=== PATIENT | female | born 1960 | race Caucasian/White ===

== ENCOUNTER 2020-11-26 05:49 | Day surgery (SDC) | payer OTHER ==
[2020-11-23 11:15] LABS: COVID AG,FIA SOURCE NASAL SWAB
[~2020-11-26] VITALS: Ht 152.4 cm; Wt 75.0 kg
[2020-11-26] MEDS ORDERED: LIDOCAINE 4% 50 ML SOLUTION TP ONE (05:50)
[2020-11-26] MEDS ORDERED: ALBUTEROL SULFATE 2.5 MG/0.5 ML NEB SOLUTION NEB ONE (05:50)
[2020-11-26] MEDS ORDERED: BENZOCAINE 20% 50 MCG/SPRAY 57 GM TP ONE (05:50)
[2020-11-26] MEDS ORDERED: LIDOCAINE 2% 30 ML JELLY TP ONE (05:50)
[2020-11-26] MEDS ORDERED: SODIUM CHLORIDE 0.9% 1,000 ML ONE (06:10)
[2020-11-26] MEDS ORDERED: ESCI20TA87 PO (06:46)
[2020-11-26] MEDS ORDERED: PROP10TA73 PO (06:46)
[2020-11-26] MEDS ORDERED: QUET300T2 PO (06:46)
[2020-11-26] MEDS ORDERED: ATOR40TA28 PO (06:49)
[2020-11-26] MEDS ORDERED: QUET100T PO ×2 (06:49)
[2020-11-26] MEDS ORDERED: SODIUM CHLORIDE 0.9% 1,000 ML IV ONE (07:00)
[2020-11-26] MEDS ORDERED: FentaNYL CITRATE PF 100 MCG/2 ML VIAL ONE (07:49)
[2020-11-26] MEDS ORDERED: MIDAZOLAM HCL 5 MG/ML VIAL ONE (07:49)
[2020-11-26 07:55] LABS: GLUCOMETER DEV NAME(LOC) SDS.; GLUCOSE,POINT OF CARE 122 MG/DL (70-110)
[2020-11-26] MEDS ORDERED: MethylPREDNISolone SOD SUCC 125 MG/2 ML VIAL IVP ONE (09:15)
== END 2020-11-26 11:20 | disposition home or self-care (01) ==
LOC: SURGERY 05:49
PROVIDERS: ATTEND Internal Medicine Critical Care Medicine
DX: J38.4 Edema of larynx (principal); B37.0 Candidal stomatitis; F41.9 Anxiety disorder, unspecified; Z88.6 Allergy status to analgesic agent; Z90.49 Acquired absence of other specified parts of digestive tract; Z98.890 Other specified postprocedural states; Z79.899 Other long term (current) drug therapy
CPT/HCPCS: 31623; 31624; 71045; 82962; 87015; 87070; 87101; 87205; 87206; 87220; 87426; 88108; 88184; 88185; 88312; C9803; J2250; J2930; J3010; J7030; 87077; J7613; Z7610